=== PATIENT | female | born 1965 | race Caucasian/White ===

== ENCOUNTER 2021-09-28 17:41 | Emergency (ER) | payer SELFPAY ==
[2021-09-28 17:54] VITALS: BP 161/85
[2021-09-28] MEDS ORDERED: IBUPROFEN 600 MG TAB PO ONE (19:07)
--- NOTE | 2021-09-28 19:14 | Emergency Department Report ---
<ROSS RANGEL - Last Filed: 09/28/21 19:46> ED Lower Extremity HPI - General Chief Complaint: Extremity Injury, Lower Stated Complaint: TWISTED ANKLE Source: patient Mode of arrival: Wheelchair Limitations: Physical Limitation - History of Present Illness Initial Comments: 56-year-old morbid obese -Surinames[place] female presents to the emergency room for left foot ankle pain and swelling. 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 She states that she is not able to bear weight. She complains of swelling and excruciating pain. She has no known drug allergies. She denies hitting her head. MD Complaint: ankle injury -: This afternoon Injury: Ankle: Left Type of Injury: inversion, eversion, hyperextension, hyperflexion Place: work Severity scale (0 -10): 9 Improves With: immobilization Worsens With: weight bearing, movement, palpation Context: fall Associated Symptoms: swelling, tingling, unable to bear weight - Related Data Previous Rx's Medication Instructions Recorded Last Taken Type HYDROcodone/APAP 7.5-325 [[place]amo[place] 1 each PO Q8HR PRN #12 tablet 09/28/21 Unknown Rx 7.5/325] Ibuprofen [Motrin 800 MG tab] 800 mg PO Q8HR PRN #30 tablet 09/28/21 Unknown Rx Allergies Allergy/AdvReac Type Severity Reaction Status Date / Time No Known Allergies Allergy Unverified 09/28/21 17:54 ED Review of Systems Comment: All other systems reviewed and negative ED Past Medical Hx - Medications Home Medications: Home Medications Medication Instructions Recorded Confirmed Last Taken Type HYDROcodone/APAP 7.5-325 [[place] 1 each PO Q8HR PRN #12 tablet 09/28/21 Unknown Rx 7.5/325] Ibuprofen [Motrin 800 MG tab] 800 mg PO Q8HR PRN #30 tablet 09/28/21 Unknown Rx ED Physical Exam - General Limitations: Physical Limitation General appearance: alert, in no apparent distress, obese - Head Head exam: Present: atraumatic, normocephalic - Eye Eye exam: Present: EOMI - ENT ENT exam: Present: normal external ear exam - Neck Neck exam: Present: full ROM - Respiratory Respiratory exam: Absent: respiratory distress - Cardiovascular Cardiovascular Exam: Present: regular rate - Expanded Lower Extremity Exam Right Hip exam: Present: normal inspection Upper Leg exam: Present: normal inspection Knee exam: Present: normal inspection Lower Leg exam: Present: normal inspection Ankle exam: Present: tenderness, swelling, deformity Foot/Toe exam: Present: normal inspection Neuro vascular tendon exam: Present: no vascular compromise Gait: Positive: unable to bear weight - Back Exam Back exam: Present: normal inspection - Neurological Exam Neurological exam: Present: alert, oriented X3 - Psychiatric Psychiatric exam: Present: normal affect, normal mood - Skin Skin exam: Present: warm, dry, intact, normal color. Absent: rash ED Lower Extremity MDM - Radiology Data Radiology results: report reviewed [facility] [address] [place] [address] XRay Report Signed Patient: MARIANNE PEREZ MR#: [id number] : 1965 Acct:[id number] Age/Sex: 56 / F ADM Date: 09/28/21 Loc: ED Attending Dr: Ordering Physician: ALIZA GARCIA Date of Service: 09/28/21 Procedure(s): XR ankle 3+V LT Accession Number(s): [id number] cc: ALIZA GARCIA Fluoro Time In Minutes: XR ankle 3+V LT INDICATION: Injured with pain and swelling COMPARISON: None. FINDINGS/IMPRESSION: Spiral fracture of the distal left fibula. Medial malleolus is intact. Findings consistent with Canales B fracture. Joint spaces are intact. Signer Name: Pola Hudson MD Signed: 09/28/2021 7:27 PM Workstation Name: [id number] Transcribed By: CS Dictated By: Pola Hudson MD Electronically Authenticated By: Pola Hudson MD Signed Date/Time: 09/28/211926 DD/ 25 TD/TT: - Medical Decision Making 56-year-old morbid obese -[place] female presents to the emergency room for left foot ankle pain and swelling. 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 She states that she is not able to bear weight. She complains of swelling and excruciating pain. She has no known drug allergies. She denies hitting her head. X-ray of left ankle has been ordered as well as ibuprofen 600 mg for pain has been ordered. X-ray shows a left fibular fracture and a spiral. Patient can be discharged home with dual [facility] [place] for the left lower leg crutches prescription for ibuprofen and Lamoille. Checked [employer] no record found. Patient will be referred to orthopedics for further evaluation and permanent casting. ED Disposition Clinical Impression: Closed left fibular fracture, Fall Disposition: HOME / SELF CARE / HOMELESS Is pt being admited?: No Does the pt Need Aspirin: No Condition: Stable Instructions: Fibular Fracture Rehab-SportsMed, Cast or Splint Care, Adult Additional Instructions: X-ray shows you have a left fibular fracture. Return status is nonambulatory no weightbearing. Take pain medication as needed. Follow-up with orthopedist as this is just a temporary splint. Prescriptions: Ibuprofen [Motrin 800 MG tab] 800 mg PO Q8HR PRN #30 tablet PRN Reason: Pain , Severe (7-10) HYDROcodone/APAP 7.5-325 [[place]amo[place] 7.5/325] 1 each PO Q8HR PRN #12 tablet PRN Reason: Pain Referrals: LUIS WAGNER MD [Staff Physician] - 3-5 Days LUCILLE ASHRAF MD [Staff Physician] - 3-5 Days Forms: Work/School Release Form(ED) Time of Disposition: 19:50 <NOAH BARAKAT U - Last Filed: 09/30/21 09:51> ED Review of Systems ROS: Stated complaint: TWISTED ANKLE Other details as noted in HPI ED Course Vital Signs 09/28/21 17:52 Temperature 98.1 F Pulse Rate 97 H Respiratory 16 Rate Blood Pressure 161/85 [Left] O2 Sat by Pulse 98 Oximetry ED Lower Extremity MDM - Medical Decision Making 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 I was available for consultation as needed at all times during the patient's visit in the emergency department but was not consulted on this case. Critical care attestation.: If time is entered above; I have spent that time in minutes in the direct care of this critically ill patient, excluding procedure time.
--- NOTE | 2021-09-28 19:32 | XRay Report ---
XR ankle 3+V LT INDICATION: Injured with pain and swelling COMPARISON: None. FINDINGS/IMPRESSION: Spiral fracture of the distal left fibula. Medial malleolus is intact. Findings consistent with Canales B fracture. Joint spaces are intact. Signer Name: Pola Hudson MD Signed: 09/28/2021 7:27 PM Workstation Name: [id number]
== END 2021-09-28 19:00 | disposition home or self-care (01) ==
LOC: ED 17:41
DX: S82.492A Other fracture of shaft of left fibula, initial encounter for closed fracture (principal); W18.39XA Other fall on same level, initial encounter; Y93.89 Activity, other specified; Y92.89 Other specified places as the place of occurrence of the external cause; Y99.8 Other external cause status
CPT/HCPCS: 99283